=== PATIENT | male | born 1955 | race Caucasian/White ===

== ENCOUNTER → 2016-06-27 | Outpatient (CLI) | payer OTHER ==
[~2016-06-27] MED LIST: CLOPIDOGREL BISULFATE 75 MG TABLET ONE; DIAZEPAM 10 MG TABLET. ONE; EPTIFIBATIDE BOLUS 2,000 MCG/ML 10ML VIAL. IV ONE; FENTANYL PF 100 MCG/2 ML VIAL. ONE; HEPARIN SODIUM 5,000 UNIT/ML VIAL. ONE; IODIXANOL 270 MG/ML 100 ML VIAL. ONE; IV NORMAL SALINE 1000ML BAG 1,000 ML ONE; IV NORMAL SALINE 500ML BAG 500 ML ONE; LIDOCAINE 1% Multi-Dose 20 ML VIAL. ONE; MIDAZOLAM HCL/PF 2 MG/2 ML VIAL. ONE; VANCOMYCIN 1GM IVPB FOR OMNI 250 ML ONE; hydrALAZINE 20 MG/ML VIAL. ONE
== END | disposition home or self-care (01) ==
LOC: PCVCINTER 07:34
PROVIDERS: ATTEND Nuclear Medicine Nuclear Cardiology
DX: I70.202 Unspecified atherosclerosis of native arteries of extremities, left leg (principal); I70.0 Atherosclerosis of aorta; I70.1 Atherosclerosis of renal artery; I77.1 Stricture of artery; I15.0 Renovascular hypertension
CPT/HCPCS: 36252; 37186; 37227; 75716; 76937; C1725; C1751; C1757; C1760; C1769; C1876; C1885; C1887; C1894; C2628; J0360; J1327; J1644; J2250; J3010; J3370; J7030; J7040; 61707

== ENCOUNTER → 2016-08-08 | Outpatient (CLI) | payer OTHER | END | disposition home or self-care (01) | LOC: PCVCIMAG 14:39 | PROVIDERS: ATTEND Nuclear Medicine Nuclear Cardiology | DX: I70.211 Atherosclerosis of native arteries of extremities with intermittent claudication, right leg (principal); I10 Essential (primary) hypertension; E11.9 Type 2 diabetes mellitus without complications; Z95.820 Peripheral vascular angioplasty status with implants and grafts | CPT/HCPCS: 93925; G0463 ==